=== PATIENT | male | born 1960 | race Caucasian/White ===

== ENCOUNTER 2021-06-22 16:25 | Emergency (ER) | payer BC, SELFPAY ==
[2021-06-22 17:03] VITALS: BP 163/88; PULSE 71; RESP 18; TEMP 36.4; O2SAT 98
--- NOTE | 2021-06-22 17:13 | PC.NURSE ---
Patient states that I am comfortable with my blood pressure and states that he is going to follow up with his primary physician tomorrow. I informed him that he is leaving without being evaluated by an ED Provider and that any symptoms he has may worsen. I also informed him that he may return to ED at anytime to seek treatment. Patient did request that I write down his blood pressure readings so he could show his primary doctor tomorrow. Patient again told me he did not want to be seen by the provider and was going to leave the ED.
--- NOTE | 2021-06-22 19:43 | PC.NURSE ---
pt. called for triage no answer.
== END 2021-06-23 04:51 | disposition left against medical advice (07) ==
LOC: ANHED 18:00
PROVIDERS: PCP Physician Assistant
DX: Z53.21 Procedure and treatment not carried out due to patient leaving prior to being seen by health care provider (principal)
CPT/HCPCS: 99199